=== PATIENT | female | born 1955 | race Caucasian/White ===

== ENCOUNTER 2018-08-22 11:20 | Emergency (ER) | payer MEDICARE ==
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
--- NOTE | 2018-08-22 13:07 | US ---
TECHNIQUE: Ultrasound venous duplex left lower extremity. COMPARISON: None. FINDINGS: The left common femoral, superficial femoral, deep femoral, popliteal, posterior tibial, and greater saphenous veins are fully compressible normal waveforms. IMPRESSION: Normal ultrasound of the left lower extremity veins. Dictated by: Juliano Ramirez MD @ 08/22/2018 13:05:48 (Electronically Signed)
--- NOTE | 2018-08-22 13:16 | CR ---
INDICATION: Lt knee pain, pain, swelling, arthritis hx, no known injury. HISTORY: Left knee pain and swelling. No known injury. COMPARISON: None. TECHNIQUE: Left knee, 2 views. FINDINGS: There is osteophytic spurring present in the lateral and medial compartments of the left femorotibial joint. No acute fracture is identified. There is no depression of either tibial plateau. Mineralization is normal. No radiopaque foreign body is seen. No significant suprapatellar joint effusion. IMPRESSION: 1. Mild osteoarthritis at the left knee. 2. No suprapatellar joint effusion on the lateral projection. Dictated by Sourav Hines MD @ 08/22/2018 1:14:31 PM Dictated by: Sourav Hines MD @ 08/22/2018 13:14:39 (Electronically Signed)
== END 2018-08-22 13:40 | disposition home or self-care (01) ==
LOC: MW.ED 11:20
DX: M17.12 Unilateral primary osteoarthritis, left knee (principal); F17.210 Nicotine dependence, cigarettes, uncomplicated; Z88.6 Allergy status to analgesic agent; Z79.899 Other long term (current) drug therapy
CPT/HCPCS: 73560-26-LT; 73560-LT; 93971-26-LT; 93971-LT; 99282; 99284-25

== ENCOUNTER 2023-07-13 09:44 | Emergency (ER) | payer MEDICARE ==
[2023-07-13] MEDS: Sodium Chloride 0.9% 10 ML Syringe FLUSH PRN (10:15)
[2023-07-13] MEDS: Sodium Chloride 0.9% 2.5 ML Syringe FLUSH PRN (10:16)
[2023-07-13 10:33] LABS: BASOPHILS ABSOLUTE AUTO 0.11 K/uL (0.00-0.20); BASOPHILS PERCENT AUTO 0.6 % (0.0-1.0); EOSINOPHILS ABSOLUTE AUTO 1.67 K/uL (0.00-0.45); EOSINOPHILS PERCENT AUTO 8.8 % (0.0-6.0); HEMATOCRIT 30.4 % (37.0-47.0); HEMOGLOBIN 9.6 g/dL (12.0-16.0); IMMATURE GRAN ABSOLUTE AUTO 0.14 K/uL (0.00-0.05); IMMATURE GRAN PERCENT AUTO 0.7 % (0.0-0.4); LYMPHOCYTES ABSOLUTE AUTO 1.45 K/uL (1.00-4.80); LYMPHOCYTES PERCENT AUTO 7.6 % (24.0-44.0); MEAN CORPUSCULAR HEMOGLOBIN 27.5 pg (28.0-32.0); MEAN CORPUSCULAR HGB CONC 31.6 g/dL (32.0-36.0); MEAN CORPUSCULAR VOLUME 87.1 fL (83.0-99.0); MEAN PLATELET VOLUME 9.2 fL (9.4-12.3); MONOCYTES ABSOLUTE AUTO 1.29 K/uL (0.00-0.80); MONOCYTES PERCENT AUTO 6.8 % (0.0-8.0); NEUTROPHILS ABSOLUTE AUTO 14.41 K/uL (1.80-7.70); NEUTROPHILS PERCENT AUTO 75.5 % (41.0-71.0); PLATELET COUNT,PLT 494 K/uL (150-400); RED BLOOD CELL COUNT 3.49 M/uL (4.10-5.30); WHITE BLOOD CELL COUNT,WBC 19.07 K/uL (3.9-11.3)
[2023-07-13 10:58] LABS: A/G RATIO 0.4 (0.9-1.6); ALBUMIN 2.2 g/dL (3.4-5.0); BILIRUBIN TOTAL 0.3 mg/dL (0.2-1.0); CALCIUM 9.5 mg/dL (8.5-10.1); CARBON DIOXIDE,CO2 25.5 mmol/L (21.0-32.0); CREATININE 1.2 mg/dL (0.6-1.0); EST CRCL DRUG DOSING (CG) 39.28 mL/min; POTASSIUM,K 3.3 mmol/L (3.5-5.1); PROTEIN TOTAL,TP 7.4 g/dL (6.4-8.2)
[2023-07-13 11:13] LABS: CORONAVIRUS COVID-19 NAA NEGATIVE (NEGATIVE); INFLUENZA A NAA NEGATIVE (NEGATIVE); INFLUENZA B NAA NEGATIVE (NEGATIVE)
[2023-07-13] MEDS: Iopamidol 755 MG/ML 500 ML Multipack Bottle IVPUSH STA (12:12)
[2023-07-13 12:21] LABS: APPEARANCE,URINE SLT CLOUDY; BILIRUBIN,URINE NEGATIVE (NEGATIVE); COLOR,URINE YELLOW; GLUCOSE,URINE NEGATIVE (NEGATIVE); KETONES,URINE NEGATIVE (NEGATIVE); LEUKOCYTE ESTERASE,URINE LARGE (NEGATIVE); NITRITE,URINE NEGATIVE (NEGATIVE); OCCULT BLOOD,URINE MODERATE (NEGATIVE); PROTEIN,URINE 100 mg/dL (NEGATIVE); UROBILINOGEN,URINE 0.2 EU/dL (<2.0)
[2023-07-13 12:43] LABS: BACTERIA,URINE 4+ (NEGATIVE); MUCUS,URINE LIGHT (NONE-MOD); SQUAMOUS EPITHELIAL CELLS,UR FEW
[2023-07-13] MEDS: Ciprofloxacin in D5W 400 MG in Premix Bag 1 BAG IV SCH (13:39)
[2023-07-13] MEDS: Morphine 4 MG/ML Syringe IVPUSH ONE (14:55)
== END 2023-07-13 15:48 ==
LOC: MW.ED 09:44
DX: N39.0 Urinary tract infection, site not specified (principal); R19.00 Intra-abdominal and pelvic swelling, mass and lump, unspecified site; R60.0 Localized edema; I10 Essential (primary) hypertension; F17.210 Nicotine dependence, cigarettes, uncomplicated; Z75.8 Other problems related to medical facilities and other health care; Z88.6 Allergy status to analgesic agent
CPT/HCPCS: 0240U; 36415; 71045; 74177; 80053; 81001; 81003; 82550; 83735; 83880; 85025; 87086; 96365; 96375; 99285; J0744; J2270; J3490; Q9967; 93005